=== PATIENT | female | born 1980 | race Caucasian/White ===

== ENCOUNTER 2022-11-17 06:54 | Day surgery (SDC) | payer BC ==
[2022-11-11 14:58] LABS: BASOPHILS # (AUTO) 0.1 X10'3 (0-0.2); BASOPHILS % (AUTO) 0.8 % (0-1); EOSINOPHILS % (AUTO) 0.7 % (0-6); LYMPHOCYTES # (AUTO) 1.9 X10'3 (1.1-4.8); LYMPHOCYTES % (AUTO) 28.7 % (21-51); MEAN CORPUSCULAR HEMOGLOBIN 30.9 PG (27.0-31.0); MEAN CORPUSCULAR HGB CONC 34.3 g/dL (33.0-36.5); MEAN CORPUSCULAR VOLUME 90.1 FL (78-98); MEAN PLATELET VOLUME 7.3 FL (7.4-10.4); MONOCYTES # (AUTO) 0.5 X10'3 (0-0.9); MONOCYTES % (AUTO) 7.7 % (2-12); NEUTROPHILS # (AUTO) 4.1 X10'3 (1.8-7.7); NEUTROPHILS % (AUTO) 62.1 % (42-75); PRE OP HEMATOCRIT 45.9 % (35.0-45.0); PRE OP HEMOGLOBIN 15.8 g/dL (12.0-16.0); PRE OP PLATELET COUNT 326 X10'3 (140-440); PRE OP WHITE BLOOD COUNT 6.7 10'3 (4.8-10.8); RED CELL DISTRIBUTION WIDTH 12.9 % (11.5-14.5)
[2022-11-11 15:12] LABS: ALBUMIN 3.8 G/DL (3.4-5.0); ALKALINE PHOSPHATASE 45 IU/L (46-116); BLOOD UREA NITROGEN 11 MG/DL (7-18); BUN/CREATININE RATIO 13.1 (10.0-20.0); CHLORIDE 104 MMOL/L (99-107); CREATININE 0.84 MG/DL (0.40-0.90); PRE OP ALT 23 U/L (30-65); PRE OP ANION GAP 7 (8-16); PRE OP AST 12 U/L (10-37); PRE OP BILIRUB, TOTAL 0.7 MG/DL (0.0-1.0); PRE OP GLUCOSE 92 MG/DL (70-104); PRE OP POTASSIUM 3.6 MMOL/L (3.4-5.1); PRE OP SODIUM 139 MMOL/L (135-145); TOTAL CARBON DIOXIDE 27.7 MMOL/L (24-32); TOTAL PROTEIN 7.5 G/DL (6.4-8.2); eGFR 74 ML/MIN
[2022-11-11 15:34] LABS: HCG SERUM QL NEGATIVE
[2022-11-17] VITALS (10 sets, daily range): BP systolic 110–128; BP diastolic 64–79; PULSE 64–112; RESP 9–16; TEMP 98.3; O2SAT 99–100
[~2022-11-17] VITALS: Ht 160 cm; Wt 78.8 kg
[~2022-11-17 06:54] MED LIST: NO HOME MEDS; clindamycin-Cleocin 900mg/D5W 50 ML IV ONE; famotidine 20mg tablet PO ONE; gentamicin inj 315 MG in normal saline 100ml IV soln 92.125 ML IV ONE; ringers solution, lacted 1,000 ML IV SCH
[2022-11-17] MEDS ORDERED: BUPIVAcaine HCl 0.25%/EPInephrine 1:200,000 inj. 10 ML VIAL ONE (08:06)
[2022-11-17] MEDS ORDERED: midazolam 1 mg/ML 2ml injection ONE (08:54)
[2022-11-17] MEDS ORDERED: fentaNYL/PF 50MCG/1 ML 2ML syringe ONE (08:54)
[2022-11-17] MEDS ORDERED: rocuronium 10mg/ml inj IV ONE (08:57)
[2022-11-17] MEDS ORDERED: LIDOcaine 2% (20mg/ml) 5ml vial ONE (08:57)
[2022-11-17] MEDS ORDERED: propofol inj 20 ML IV ONE (08:57)
[2022-11-17] MEDS ORDERED: dexamethasone sod phosphate 4mg/ml inj. ONE (08:59)
[2022-11-17] MEDS ORDERED: ondansetron/PF 4mg/2ml inj ONE (08:59)
[2022-11-17] MEDS ORDERED: sevoflurane 250ml liquid IH ONE (09:05)
[2022-11-17] MEDS ORDERED: ondansetron/PF 4mg/2ml inj IV PRN (09:20)
[2022-11-17] MEDS ORDERED: meperidine/PF 25mg/ml syringe IV PRN ×3 (09:20)
[2022-11-17] MEDS ORDERED: ringers solution, lacted 1,000 ML IV SCH (09:20)
[2022-11-17] MEDS ORDERED: proCHLORperazine 10 MG/2 ml inj IV PRN (09:20)
[2022-11-17] MEDS ORDERED: morphine 4 MG/ML inj SYRINge IV PRN (09:20)
[2022-11-17] MEDS ORDERED: morphine 2 MG/ML inj. syringe IV PRN (09:20)
[2022-11-17] MEDS ORDERED: ketorolac trometh. 30mg/ml inj. ONE (09:38)
[2022-11-17] MEDS ORDERED: glycopyrrolate 0.2mg/ml inj ONE (09:46)
[2022-11-17] MEDS ORDERED: neostigmine methylsulfate 1 MG/ML 10ml vial ONE (09:46)
[2022-11-17] MEDS ORDERED: sugammadex 200mg/2ml injection IV ONE (09:56)
--- NOTE | 2022-11-17 09:59 | NUR ---
Received from OR via , accompanied by Anesthesiologist LENI and report given by Anesthesiolgist. PT ROUSAABLE, O2 PER MASK AT 6 LPM. EUPNEIC, VSS SR SAO2 100% DENIES PAIN. ABDOMEN WITH DERMABOND CLEAR, DRY. PERIPAD IN PLACE WITH NO DRAINAGE. IV 220 GUAGE RFA PATENT Addendum: 11/17/22 at 1020 by Boone Bergeron RN Amended: Links added.
--- NOTE | 2022-11-17 11:10 | NUR ---
PT AWAKE AND ALERT TOLERATING PO ICE AND WATER W/NO NAUSEA MINIMAL ABDOMINAL DISCOMFORT 03/19 -HAS RX AT HOME. NO DRAINAGGE FROM LAP SITES OR ON PERIPAD. DISCHARGE TO HOME W/PABLITO SCHNEIDER W/O INCIDENT Addendum: 11/17/22 at 1127 by Boone Bergeron RN Amended: Links added. Addendum: 11/17/22 at 1129 by Boone Bergeron RN PT HAD MILD SHIVERS, RELIEVED W/ WARM BLANKET
== END 2022-11-17 11:09 | disposition home or self-care (01) ==
LOC: PAS 06:54
PROVIDERS: ATTEND Specialist
DX: Z30.2 Encounter for sterilization (principal); N92.0 Excessive and frequent menstruation with regular cycle; Z88.0 Allergy status to penicillin; Z79.899 Other long term (current) drug therapy
CPT/HCPCS: 36415; 58563; 58670; 80053; 82948; 84703; 85025; J1100; J1580; J1885; J2250; J2405; J2704; J2710; J3010; J3490; J7120; Z7506; Z7512; A4355; A4618; A4649; A6258; A7000